=== PATIENT | female | born 1950 | race Caucasian/White ===

== ENCOUNTER → 2018-09-11 | Outpatient (CLI) | payer MEDICARE, OTHER ==
[~2018-09-11] MED LIST: DIOVAN160 MG PO
--- NOTE | 2018-09-11 08:22 | Diagnostic Imaging Report ---
EXAM: Renal Ultrasound INDICATION: Urinary tract infection. COMPARISON: CT Chest 08/13/2018. Report from CT Abdomen/Pelvis 10/10/2016, although images are not available for review at the time of this dictation. TECHNIQUE: Transverse and longitudinal images of the kidneys and bladder were obtained. FINDINGS: Right Kidney: Length: Measures 10.6 x 3.9 x 4.4 cm Appearance: Normal echogenicity. Collecting system: No hydronephrosis Stones: None Cyst/Mass: Simple appearing anechoic right upper pole cyst measuring up to 3.8 x 3.7 x 4.9 cm. There is a predominately anechoic right lower pole cyst measuring up to 3.5 x 2.7 x 4.0 cm with thin septation. There is a small nodular component along the wall without doppler flow. Left Kidney: Length: Measures 9.9 x 4.8 x 4.6 cm Appearance: Normal echogenicity. Collecting system: No hydronephrosis Stones: None Cyst/Mass: None Bladder: Unremarkable in appearance. Bilateral ureteral jets are present. The prevoid volume is 391 cc and there is no post void volume. IMPRESSION: No evidence of renal stone or hydronephrosis. Minimally complex right lower pole renal cyst. Suggest follow-up ultrasound in 6 months to assess for stability. Signed by: Dr. Gurwinder Sequeira MD on 09/11/2018 8:19 AM
--- NOTE | 2018-09-11 08:29 | Diagnostic Imaging Report ---
Exam: KUB -one view Clinical History: UTI. Comparison: None. Findings: Nonobstructive bowel gas pattern. Bowel gas partially obscures visualization of the right kidney. Likely vascular calcifications project in the region of the left upper kidney, as seen on CT chest from 08/13/2018. No definite renal or ureteral stone. No acute bony abnormality. Impression: No radiographic evidence of urinary stone. Signed by: Dr. Gurwinder Sequeira MD on 09/11/2018 8:26 AM
== END ==
LOC: US 07:23
PROVIDERS: ATTEND Urology
DX: N39.0 Urinary tract infection, site not specified (principal)
CPT/HCPCS: 74018; 76770

== ENCOUNTER → 2019-07-21 | Outpatient (CLI) | payer MEDICARE, OTHER ==
--- NOTE | 2019-07-21 11:06 | Diagnostic Imaging Report ---
CT of the chest without contrast. History: Follow-up lung nodules. Comparison: 08/13/2018. Technique: Multidetector CT scanning of the abdomen and pelvis was performed from the level of the lung bases to the inferior pubic rami after the administration of intravenous contrast. Coronal and sagittal multiplanar reformations were obtained. RADIATION DOSE: Dose modulation, iterative reconstruction, and/or weight based adjustment of the mA/kV was utilized to reduce the radiation dose to as low as reasonably achievable. IMPRESSION: 1. Stable left upper lobe 2 mm nodule. No further follow-up is indicated. 2. Additional findings are stable when compared to the exam from 2019. Signed by: Star Sanchez MD on 07/21/2019 11:02 AM
== END ==
LOC: CT 09:25
PROVIDERS: ATTEND Internal Medicine
DX: R91.1 Solitary pulmonary nodule (principal)
CPT/HCPCS: 71250

== ENCOUNTER → 2019-09-10 | Outpatient (CLI) | payer MEDICARE, OTHER ==
--- NOTE | 2019-09-10 08:43 | Diagnostic Imaging Report ---
EXAM: Renal Ultrasound INDICATION: ^CYST OF KIDNEY COMPARISON: 09/11/2018 TECHNIQUE: Transverse and longitudinal images of the kidneys and bladder were obtained. FINDINGS: Right Kidney: Size: 9 cm Echogenicity: Normal Parenchymal thickness: Normal Collecting system: No hydronephrosis Stones: None Cyst/Mass: Exophytic simple cyst projecting from the upper pole measures 4.5 x 3.7 x 4.3 cm (previously 3.8 x 3.7 x 4.9 cm). Small echogenic focus along the wall of the cyst may represents an calcification. Exophytic cyst with a single thin internal septation projects from the lower pole and measures 3.7 x 2.6 x 3.9 cm (previously 3.5 x 2.7 x 4 cm). Left Kidney: Size: 9.1 cm Echogenicity: Normal Parenchymal thickness: Normal Collecting system: No hydronephrosis Stones: None Cyst/Mass: None Bladder: Unremarkable. Right and left ureteral jets are identified. IMPRESSION: When accounting for differences in technique, no appreciable interval change in size of minimally complex right upper and lower pole renal cysts. Consider 1 year follow-up renal ultrasound to assess for continued stability. Signed by: Dr. Rony Scott M.D. on 09/10/2019 8:39 AM
== END ==
LOC: US 07:23
PROVIDERS: ATTEND Urology
DX: N28.1 Cyst of kidney, acquired (principal)
CPT/HCPCS: 76770

== ENCOUNTER → 2020-02-17 | Outpatient (CLI) | payer MEDICARE, OTHER ==
--- NOTE | 2020-02-17 13:17 | Diagnostic Imaging Report ---
EXAMINATION: MRI of the lumbar spine without contrast HISTORY: 69-year-old female with low back pain for the last year COMPARISON: None. TECHNIQUE: Sagittal T1, T2, STIR; axial T2 and proton density. FINDINGS: It is assumed that there are 5 lumbar vertebrae. Curvature/Alignment: Normal lordosis. Vertebrae: No evidence of recent fracture, infection, or neoplasm. Conus: Normal, terminating at L1 Cauda equina: Unremarkable. Lower thoracic: Unremarkable. Paraspinal soft tissues: Large T2 hyperintense oval cyst in the upper pole of the right kidney.. Degenerative changes: L1-L2: Unremarkable. L2-L3: Minimal disc bulge and retrolisthesis. No canal or foraminal stenosis. L3-L4: Minimal asymmetric left disc bulge, no canal or foraminal stenosis. L4-L5: Minimal symmetric disc bulge, ligamenta flava thickening and facet arthrosis without significant canal or foraminal stenosis. L5-S1: Minimal disc bulge and bilateral facet arthrosis. No canal or foraminal stenoses Sacroiliac joints: Minimal degenerative changes. IMPRESSION: Mild degenerative changes of the disc and facet joints mainly at L4-L5 and L5-S1 without spinal canal or foraminal stenosis. Particularly there is no evidence of nerve root compression. Signed by: Dr. Belidna Briggs M.D. on 02/17/2020 1:14 PM
== END ==
LOC: MRI 08:31
PROVIDERS: ATTEND Internal Medicine
DX: M54.16 Radiculopathy, lumbar region (principal)
CPT/HCPCS: 72148

== ENCOUNTER → 2020-07-25 | Outpatient (CLI) | payer MEDICARE, OTHER | LOC: CT 09:38 | PROVIDERS: ATTEND Internal Medicine | DX: R91.1 Solitary pulmonary nodule (principal) | CPT/HCPCS: 71250 ==

== ENCOUNTER → 2020-08-08 | Outpatient (CLI) | payer MEDICARE, OTHER ==
[~2020-08-08] MED LIST changes: +IOPAMIDOL 370 MG/ML 200 ML INFUS..BTL INJ ONE; +SODIUM CHLORIDE 0.9% 50ML 0 ML ONE; +SODIUM CHLORIDE 0.9% 50ML 50 ML ONE
[2020-08-08 08:38] LABS: BLOOD UREA NITROGEN 19 mg/dL (7-26); BUN/CREATININE RATIO 22 (6-25); CREATININE, SERUM 0.88 mg/dL (0.57-1.11); EST GLOMERULAR FILTRATION RATE > 60 ML/MIN (60-)
== END ==
LOC: CT 07:31
PROVIDERS: ATTEND Internal Medicine Gastroenterology
DX: Z11.52 Encounter for screening for COVID-19 (principal); Z01.818 Encounter for other preprocedural examination; R10.13 Epigastric pain; K21.9 Gastro-esophageal reflux disease without esophagitis; K44.9 Diaphragmatic hernia without obstruction or gangrene; Z86.010 Personal history of colon polyps; Z85.038 Personal history of other malignant neoplasm of large intestine
CPT/HCPCS: 36415; 74177; 82565; 84520; Q9967

== ENCOUNTER → 2020-10-06 | Outpatient (CLI) | payer MEDICARE, OTHER ==
[~2020-10-06] MED LIST changes: -IOPAMIDOL 370 MG/ML 200 ML INFUS..BTL INJ ONE; -SODIUM CHLORIDE 0.9% 50ML 0 ML ONE; -SODIUM CHLORIDE 0.9% 50ML 50 ML ONE
== END ==
LOC: US 08:28
PROVIDERS: ATTEND Urology
DX: N28.1 Cyst of kidney, acquired (principal)
CPT/HCPCS: 76770

== ENCOUNTER → 2021-11-28 | Outpatient (CLI) | payer MEDICARE, OTHER ==
[~2021-11-28] MED LIST changes: +IOPAMIDOL 370 MG/ML 100 ML INFUS..BTL INJ ONE
[2021-11-28 08:22] LABS: CREATININE, SERUM 0.95 mg/dL (0.57-1.11)
== END ==
LOC: CT 07:12
PROVIDERS: ATTEND Internal Medicine
DX: R10.9 Unspecified abdominal pain (principal)
CPT/HCPCS: 36415; 74177; 82565; 84520; Q9967

== ENCOUNTER → 2022-07-11 | Outpatient (CLI) | payer MEDICARE, OTHER ==
[~2022-07-11] MED LIST changes: -IOPAMIDOL 370 MG/ML 100 ML INFUS..BTL INJ ONE
== END ==
LOC: CT 08:41
PROVIDERS: ATTEND Internal Medicine
DX: R91.1 Solitary pulmonary nodule (principal)
CPT/HCPCS: 71250

== ENCOUNTER → 2022-10-24 | Outpatient (CLI) | payer MEDICARE, OTHER | LOC: US 07:35 | PROVIDERS: ATTEND Urology | DX: Z09 Encounter for follow-up examination after completed treatment for conditions other than malignant neoplasm (principal); N28.1 Cyst of kidney, acquired | CPT/HCPCS: 76770 ==

== ENCOUNTER → 2024-06-01 | Outpatient (REF) | payer MEDICARE | LOC: MAMMO 12:16 | PROVIDERS: ATTEND Student in an Organized Health Care Education/Training Program | DX: Z12.31 Encounter for screening mammogram for malignant neoplasm of breast (principal) | CPT/HCPCS: 77067 ==

== ENCOUNTER → 2024-07-24 | Outpatient (REF) | payer MEDICARE ==
[~2024-07-24] MED LIST changes: +ASPIRIN81 MG PO; +AZITHROMYCIN250 MG PO; +CEPACOL SORE T1 EAC5 PO; +DEXLANSOPRAZOLE60 MG PO; +HYDROCHLOROTHIA25 MG PO; +ONDANSETRON ODT4 MG PO
== END ==
LOC: CT 07:46
PROVIDERS: ATTEND Internal Medicine
DX: R91.1 Solitary pulmonary nodule (principal)
CPT/HCPCS: 71250